=== PATIENT | female | born 1980 | race American Indian/Alaskan Native ===

== ENCOUNTER 2016-12-04 19:50 | Emergency (ER) | payer OTHER | END 2016-12-04 21:00 | disposition left against medical advice (07) | LOC: ED 19:50 | DX: G43.909 Migraine, unspecified, not intractable, without status migrainosus (principal); R03.0 Elevated blood-pressure reading, without diagnosis of hypertension; Z88.8 Allergy status to other drugs, medicaments and biological substances; Z53.21 Procedure and treatment not carried out due to patient leaving prior to being seen by health care provider ==

== ENCOUNTER 2017-03-07 21:31 | Inpatient (IN) | payer OTHER ==
[2017-03-07 23:03] LABS: Hematocrit 40.3 % (30.3-42.9); Hemoglobin 13.1 gm/dl (10.1-14.3); Mean Corpuscular HGB Conc 33 % (30-34); Mean Corpuscular Hemoglobin 33 pg (28-32); Mean Corpuscular Volume 103 fl (79-97); Platelet Count 146 K/mm3 (140-440); Red Blood Count 3.93 M/mm3 (3.65-5.03); Red Cell Distribution Width 13.2 % (13.2-15.2); White Blood Count 4.7 K/mm3 (4.5-11.0)
[2017-03-07 23:05] LABS: INR 1.13 (0.87-1.13); Partial Thromboplastin Time 35.5 Sec. (24.2-36.6)
[2017-03-07 23:19] LABS: Anion Gap 18 mmol/L; Blood Urea Nitrogen 12 mg/dL (7-17); Carbon Dioxide 23 mmol/L (22-30); Chloride 101.9 mmol/L (98-107); Creatine Kinase 139 units/L (30-135); Glucose 96 mg/dL (65-100); Potassium 3.5 mmol/L (3.6-5.0); Sodium 139 mmol/L (137-145)
[2017-03-07 23:53] LABS: Basophils % (Manual) 0 % (0.0-1.8); Blastocytes % (Manual) 0 %; Eosinophils % (Manual) 0 % (0.0-4.3)
[2017-03-07 23:59] LABS: RBC Morphology Normal
[2017-03-08] LABS: Diff Status Complete; Platelet Estimate Consistent w Auto
[2017-03-08] MEDS ORDERED: TYLENOL ONE (01:03)
[2017-03-08] MEDS ORDERED: TYLENOL PO ONE (01:11)
[2017-03-08] MEDS ORDERED: CATAPRES ONE (02:05)
[2017-03-08] MEDS ORDERED: CATAPRES PO ONE (02:11)
--- NOTE | 2017-03-08 07:05 | Emergency Department Report ---
HPI - General Chief Complaint: Chest Pain Time Seen by Provider: 03/08/17 06:51 - HPI HPI: Room 3 The patient is a 36-year-old female presenting with a chief complaint of syncope. The patient states yesterday while at work she felt "faint" all day. The patient states when she went home she continued to feel this way. The patient states while she was in the closet last night at approximately 20:00 she began to feel dizzy and had a funny feeling in her head with a slight headache and then lost consciousness. The patient states when she came to she was lying down on the floor and began having headache blurred vision and substernal chest pain. She still complains of the headache and chest pain. Patient describes chest pain as sharp in nature and gives it a score of 6/10. The patient gives her headache score of 5/10. The patient states she recently drove to and from [facility] 3 days ago (approximately [address]). The patient states she's never had a stress test or cardiac catheterization Location: Head, chest Duration: [see above] Quality: Headache, sharp Severity: 5-6/10 Modifying factors: [see above] Context: [see above] Mode of transportation: Unknown ED Past Medical Hx - Past Medical History Previous Medical History?: Yes Hx Hypertension: Yes Hx Diabetes: Yes (Recent Dx) Additional medical history: Hypothyroidism - Surgical History Past Surgical History?: Yes Hx Breast Surgery: Yes (breast biopsy-benign) Additional Surgical History: Hyst 2012, , herniorrhaphy - Family History Family history: no significant - Social History Smoking Status: Never Smoker Substance Use Type: None - Medications Home Medications: Home Medications Medication Instructions Recorded Confirmed Last Taken Type guaiFENesin/CODEINE [Robitussin AC] 5 ml PO Q6HR #120 ml 08/31/15 Unknown Rx ED Review of Systems ROS: Stated complaint: CHEST PAIN, RODRÍGUEZ Other details as noted in HPI Comment: All other systems reviewed and negative Constitutional: denies: chills, fever Eyes: denies: eye pain, eye discharge, vision change ENT: denies: ear pain, throat pain Respiratory: denies: cough, shortness of breath, wheezing Cardiovascular: chest pain Endocrine: no symptoms reported Gastrointestinal: denies: abdominal pain, nausea, diarrhea Genitourinary: denies: urgency, dysuria, discharge Musculoskeletal: denies: back pain, joint swelling, arthralgia Skin: denies: rash, lesions Neurological: headache Psychiatric: denies: anxiety, depression Hematological/Lymphatic: denies: easy bleeding, easy bruising Physical Exam - Physical Exam Vital Signs: Vital Signs 03/07/17 03/08/17 03/08/17 21:51 01:14 02:12 Temperature 98.5 F Pulse Rate 64 73 100 H Respiratory 18 18 Rate Blood Pressure 180/120 187/125 Blood Pressure 158/106 [Right] O2 Sat by Pulse 100 100 Oximetry 03/08/17 03/08/17 03/08/17 04:29 04:30 04:40 Temperature Pulse Rate 68 64 59 L Respiratory 13 13 15 Rate Blood Pressure 129/84 129/84 Blood Pressure [Right] O2 Sat by Pulse 100 100 99 Oximetry Physical Exam: GENERAL: The patient is well-developed well-nourished female lying on stretcher not appearing to be in acute distress. [] HEENT: Normocephalic. Atraumatic. Extraocular motions are intact. Patient has moist mucous membranes. NECK: Supple. No meningitic signs are noted. Trachea midline CHEST/LUNGS: Clear to auscultation. There is no respiratory distress noted. HEART/CARDIOVASCULAR: Regular. There is no tachycardia. There is no gallop rub or murmur. ABDOMEN: Abdomen is soft, nontender. Patient has normal bowel sounds. There is no abdominal distention. SKIN: There is no rash. There is no edema. There is no diaphoresis. NEURO: The patient is awake, alert, and oriented. The patient is cooperative. The patient has no focal neurologic deficits. The patient has normal speech. Cranial nerves II through XII grossly intact, no drift, system specialist equal bilaterally MUSCULOSKELETAL:There is no evidence of acute injury. ED Course Vital Signs 03/07/17 03/08/17 03/08/17 21:51 01:14 02:12 Temperature 98.5 F Pulse Rate 64 73 100 H Respiratory 18 18 Rate Blood Pressure 180/120 187/125 Blood Pressure 158/106 [Right] O2 Sat by Pulse 100 100 Oximetry 03/08/17 03/08/17 03/08/17 04:29 04:30 04:40 Temperature Pulse Rate 68 64 59 L Respiratory 13 13 15 Rate Blood Pressure 129/84 129/84 Blood Pressure [Right] O2 Sat by Pulse 100 100 99 Oximetry ED Medical Decision Making - Lab Data Result diagrams: 03/07/17 22:08 03/07/17 22:08 Laboratory Tests 03/07/17 03/07/17 03/07/17 22:08 22:08 22:08 WBC 4.7 RBC 3.93 Hgb 13.1 Hct 40.3 MCV 103 H MCH 33 H MCHC 33 RDW 13.2 Plt Count 146 Add Manual Diff Complete Total Counted 100 Seg Neuts % (Manual) 72.0 H Band Neutrophils % 2.0 Lymphocytes % (Manual) 21.0 Reactive Lymphs % (Man) 0 Monocytes % (Manual) 5.0 Eosinophils % (Manual) 0 Basophils % (Manual) 0 Metamyelocytes % 0 Myelocytes % 0 Promyelocytes % 0 Blast Cells % 0 Nucleated RBC % Not Reportable Seg Neutrophils # Man 3.4 Band Neutrophils # 0.1 Lymphocytes # (Manual) 1.0 L Abs React Lymphs (Man) 0.0 Monocytes # (Manual) 0.2 Eosinophils # (Manual) 0.0 Basophils # (Manual) 0.0 Metamyelocytes # 0.0 Myelocytes # 0.0 Promyelocytes # 0.0 Blast Cells # 0.0 WBC Morphology Not Reportable Hypersegmented Neuts Not Reportable Hyposegmented Neuts Not Reportable Hypogranular Neuts Not Reportable Smudge Cells Not Reportable Toxic Granulation Not Reportable Toxic Vacuolation Not Reportable Dohle Bodies Not Reportable Pelger-Huet Anomaly Not Reportable Mario Rods Not Reportable Platelet Estimate Consistent w auto Clumped Platelets Not Reportable Plt Clumps, EDTA Not Reportable Large Platelets Not Reportable Giant Platelets Not Reportable Platelet Satelliting Not Reportable Plt Morphology Comment Not Reportable RBC Morphology Normal Dimorphic RBCs Not Reportable Polychromasia Not Reportable Hypochromasia Not Reportable Poikilocytosis Not Reportable Anisocytosis Not Reportable Microcytosis Not Reportable Macrocytosis Not Reportable Spherocytes Not Reportable Pappenheimer Bodies Not Reportable Sickle Cells Not Reportable Target Cells Not Reportable Tear Drop Cells Not Reportable Ovalocytes Not Reportable Helmet Cells Not Reportable Buck-[place] Bodies Not Reportable Stowell Rings Not Reportable Max Cells Not Reportable Bite Cells Not Reportable Crenated Cell Not Reportable Elliptocytes Not Reportable Acanthocytes (Spur) Not Reportable Rouleaux Not Reportable Hemoglobin C Crystals Not Reportable Schistocytes Not Reportable Malaria parasites Not Reportable Celestino Bodies Not Reportable Hem Pathologist Commnt No PT 14.4 INR 1.13 APTT 35.5 D-Dimer Sodium 139 Potassium 3.5 L Chloride 101.9 Carbon Dioxide 23 Anion Gap 18 BUN 12 Creatinine 0.6 L Estimated GFR > 60 BUN/Creatinine Ratio 20.00 Glucose 96 Calcium 9.0 Total Creatine Kinase 139 H CK-MB (CK-2) 1.0 CK-MB (CK-2) Rel Index 0.7 Troponin T < 0.010 TSH Free T4 03/08/17 03/08/17 03/08/17 01:14 03:58 06:00 WBC RBC Hgb Hct MCV MCH MCHC RDW Plt Count Add Manual Diff Total Counted Seg Neuts % (Manual) Band Neutrophils % Lymphocytes % (Manual) Reactive Lymphs % (Man) Monocytes % (Manual) Eosinophils % (Manual) Basophils % (Manual) Metamyelocytes % Myelocytes % Promyelocytes % Blast Cells % Nucleated RBC % Seg Neutrophils # Man Band Neutrophils # Lymphocytes # (Manual) Abs React Lymphs (Man) Monocytes # (Manual) Eosinophils # (Manual) Basophils # (Manual) Metamyelocytes # Myelocytes # Promyelocytes # Blast Cells # WBC Morphology Hypersegmented Neuts Hyposegmented Neuts Hypogranular Neuts Smudge Cells Toxic Granulation Toxic Vacuolation Dohle Bodies Pelger-Huet Anomaly Mario Rods Platelet Estimate Clumped Platelets Plt Clumps, EDTA Large Platelets Giant Platelets Platelet Satelliting Plt Morphology Comment RBC Morphology Dimorphic RBCs Polychromasia Hypochromasia Poikilocytosis Anisocytosis Microcytosis Macrocytosis Spherocytes Pappenheimer Bodies Sickle Cells Target Cells Tear Drop Cells Ovalocytes Helmet Cells Buck-[place]kw[place] Bodies Stowell Rings Max Cells Bite Cells Crenated Cell Elliptocytes Acanthocytes (Spur) Rouleaux Hemoglobin C Crystals Schistocytes Malaria parasites Celestino Bodies Hem Pathologist Commnt PT INR APTT D-Dimer 178.16 Sodium Potassium Chloride Carbon Dioxide Anion Gap BUN Creatinine Estimated GFR BUN/Creatinine Ratio Glucose Calcium Total Creatine Kinase CK-MB (CK-2) CK-MB (CK-2) Rel Index Troponin T < 0.010 < 0.010 TSH Free T4 03/08/17 07:34 WBC RBC Hgb Hct MCV MCH MCHC RDW Plt Count Add Manual Diff Total Counted Seg Neuts % (Manual) Band Neutrophils % Lymphocytes % (Manual) Reactive Lymphs % (Man) Monocytes % (Manual) Eosinophils % (Manual) Basophils % (Manual) Metamyelocytes % Myelocytes % Promyelocytes % Blast Cells % Nucleated RBC % Seg Neutrophils # Man Band Neutrophils # Lymphocytes # (Manual) Abs React Lymphs (Man) Monocytes # (Manual) Eosinophils # (Manual) Basophils # (Manual) Metamyelocytes # Myelocytes # Promyelocytes # Blast Cells # WBC Morphology Hypersegmented Neuts Hyposegmented Neuts Hypogranular Neuts Smudge Cells Toxic Granulation Toxic Vacuolation Dohle Bodies Pelger-Huet Anomaly Mario Rods Platelet Estimate Clumped Platelets Plt Clumps, EDTA Large Platelets Giant Platelets Platelet Satelliting Plt Morphology Comment RBC Morphology Dimorphic RBCs Polychromasia Hypochromasia Poikilocytosis Anisocytosis Microcytosis Macrocytosis Spherocytes Pappenheimer Bodies Sickle Cells Target Cells Tear Drop Cells Ovalocytes Helmet Cells Buck-[place] Bodies Stowell Rings Max Cells Bite Cells Crenated Cell Elliptocytes Acanthocytes (Spur) Rouleaux Hemoglobin C Crystals Schistocytes Malaria parasites Celestino Bodies Hem Pathologist Commnt PT INR APTT D-Dimer Sodium Potassium Chloride Carbon Dioxide Anion Gap BUN Creatinine Estimated GFR BUN/Creatinine Ratio Glucose Calcium Total Creatine Kinase CK-MB (CK-2) CK-MB (CK-2) Rel Index Troponin T TSH 3.150 Free T4 0.85 - EKG Data -: EKG Interpreted by Me EKG shows normal: sinus rhythm Rate: normal - EKG Data When compared to previous EKG there are: previous EKG unavailable Interpretation: normal EKG - Radiology Data Radiology results: report reviewed (CT head), image reviewed (chest x-ray, CT head) interpreted by me: Chest x-ray-no focal infiltrates, no pneumothorax CT head (read by radiologist)-no acute intracranial abnormality - Differential Diagnosis ACS, PE, pneumonia, pneumothorax, pericarditis, ICH Critical care attestation.: If time is entered above; I have spent that time in minutes in the direct care of this critically ill patient, excluding procedure time. ED Disposition Clinical Impression: Syncope, Chest pain Disposition: OP ADMITTED IP TO THIS HOSP Is pt being admited?: Yes Condition: Fair Instructions: Chest Pain (ED), Syncope (ED) Referrals: PRIMARY CARE,MD [Primary Care Provider] - 3-5 Days Time of Disposition: 08:59 (hospitalist paged)
[2017-03-08] MEDS ORDERED: NORCO 5/325 PO ONE (07:06)
--- NOTE | 2017-03-08 07:27 | Admit Criteria Form ---
Admission Criteria Documentation: SYNCOPE Clinical Indications for Admission to Inpatient Care ( Place 'X' for any and all applicable criteria): Admission is indicated for syncope and ANY ONE of the following (1)(2)(3)(4)(5) (6)(7) : [X ]I. Inpatient admission required rather than observation care (Also use Syncope: Observation Care Criteria as appropriate) because of ANY ONE of the following: [ ]a) Hemodynamic instability that is severe or persistent [ ]b) Cardiac arrhythmias of immediate concern identified or strongly suspected (eg, needs electrophysiologic study) [ ]c) Acute coronary syndrome identified (Also use Myocardial Infarction or Angina Criteria form ) [ ]d) Structural cardiac disorder (eg, aortic stenosis) suspected as cause that requires immediate correction [ ]e) Respiratory symptoms (eg, dyspnea, tachypnea) that are severe or persistent [ ]f) Neurologic signs or symptoms that are severe or persistent ( eg, stroke, seizures, altered mental status) [ ]g) Severe electrolyte abnormalities requiring inpatient care [ ]h) Supplemental oxygen or respiratory treatment for over 24 hrs that are performable only in acute inpatient setting [ ]i) IV fluid to replace significant ongoing (eg, for over 24 hrs ) losses (>3 L/m2 per day) [ ]j) Continuous intravenous infusion of anticoagulation, platelet inhibitor, vasoactive, or antiarrhythmic medication(15)(16) [ ]k) Pulmonary artery catheter monitoring [ ]l) Temporary pacemaker placement(17) [ ]m) Emergent cardioversion(18) [ X]n) Other conditions, treatment or monitoring requiring inpatient admission [ ]II. Suspicion of imminently dangerous cause (eg, rare causes like pericardial tamponade, pulmonary embolism) [ ]III. Syncope causing severe injury requiring hospitalization Extended stay beyond goal length of stay may be needed for(28) [ ]a) Dangerous arrhythmia(15)(23)(27)(29) [ ]b) Myocardial ischemia [ ]c) Seizure disorder [ ]d) Syncope-related injuries The original [employer] content created by [employer] has been revised. The portions of the content which have been revised are identified through the use of italic text or in bold, and [employer] has neither reviewed nor approved the modified material. All other unmodified content is copyright [employer]. Please see references footnoted in the original [facility] edition 2016 Admission Criteria Met: Yes
--- NOTE | 2017-03-08 07:46 | XRay Report ---
Chest 2 views: Compared to 08/30/15. History: Chest pain. Findings: Normal cardiomediastinal silhouette. Trachea is midline. No consolidation, pneumothorax or pleural effusion. Impression: No acute cardiopulmonary findings.
--- NOTE | 2017-03-08 08:57 | Cat Scan Report ---
CT scan of head without contrast: History: Syncope, headache. Findings: Ventricles are normal in size and midline in location. No evidence of acute ischemia, hemorrhage or mass. No extra-axial fluid collection. Normal brainstem and cerebellum. Normal sinuses and mastoid air cells. Impression: No acute intracranial abnormality.
--- NOTE | 2017-03-08 09:43 | History and Physical Report ---
History of Present Illness Date of examination: 03/08/17 Date of admission: 03/08/17 Chief complaint: syncope, CP History of present illness: 36-year-old female who presents through the emergency department with chief complaint of chest pain and syncope. Patient reports that yesterday while working she felt dizzy and faint most of the day. Patient stated that her symptoms continued when she went home and was walking through her closet when she developed a syncopal episode. Patient denies any trauma. Patient does report loss of consciousness. Patient states that she awakened with a headache and chest pain. Patient also reports intermittent shortness of breath associated with chest pain. Patient describes the chest pain as substernal sharp in nature and constant. Patient denies any PND or orthopnea. No lower external swelling. No nausea vomiting or diarrhea. No fever, chills, cough or cold-like symptoms. Patient denies any cardiac evaluation in the past. Past History Past Medical History: anemia, hypertension, hypothyroidism Past Surgical History: No surgical history, Other (Hyst 2012, , herniorrhaphy) Social history: no significant social history Family history: no significant family history Medications and Allergies Allergies Allergy/AdvReac Type Severity Reaction Status Date / Time tramadol Allergy Vomiting Verified 08/30/15 20:45 Home Medications Medication Instructions Recorded Confirmed Last Taken Type Levothyroxine [Synthroid] 50 mcg PO QAM 03/08/17 03/08/17 Unknown History Losartan [Cozaar] 25 mg PO QDAY 03/08/17 03/08/17 Unknown History Review of Systems All systems: negative Exam - Constitutional Vitals: Temp Pulse Resp BP Pulse Ox 98.5 F 87 18 122/97 97 03/07/17 21:51 03/08/17 07:21 03/08/17 07:21 03/08/17 07:21 03/08/17 07:21 General appearance: Present: no acute distress, well-nourished - EENT Eyes: Present: PERRL ENT: hearing intact, clear oral mucosa - Neck Neck: Present: supple, normal ROM - Respiratory Respiratory effort: normal Respiratory: bilateral: CTA - Cardiovascular Heart Sounds: Present: S1 & S2. Absent: rub, click - Extremities Extremities: pulses symmetrical, No edema Peripheral Pulses: within normal limits - Abdominal General gastrointestinal: Present: soft, non-tender, non-distended, normal bowel sounds Female genitourinary: Present: normal - Integumentary Integumentary: Present: clear, warm, dry - Musculoskeletal Musculoskeletal: gait normal, strength equal bilaterally - Psychiatric Psychiatric: appropriate mood/affect, intact judgment & insight - Neurologic Neurologic: CNII-XII intact, moves all extremities Results - Labs CBC & Chem 7: 03/07/17 22:08 03/07/17 22:08 Labs: Laboratory Last Values WBC 4.7 K/mm3 (4.5-11.0) 03/07/17 22:08 RBC 3.93 M/mm3 (3.65-5.03) 03/07/17 22:08 Hgb 13.1 gm/dl (10.1-14.3) 03/07/17 22:08 Hct 40.3 % (30.3-42.9) 03/07/17 22:08 MCV 103 fl (79-97) H 03/07/17 22:08 MCH 33 pg (28-32) H 03/07/17 22:08 MCHC 33 % (30-34) 03/07/17 22:08 RDW 13.2 % (13.2-15.2) 03/07/17 22:08 Plt Count 146 K/mm3 (140-440) 03/07/17 22:08 Add Manual Diff Complete 03/07/17 22:08 Total Counted 100 03/07/17 22:08 Seg Neuts % (Manual) 72.0 % (40.0-70.0) H 03/07/17 22:08 Band Neutrophils % 2.0 % 03/07/17 22:08 Lymphocytes % (Manual) 21.0 % (13.4-35.0) 03/07/17 22:08 Reactive Lymphs % (Man) 0 % 03/07/17 22:08 Monocytes % (Manual) 5.0 % (0.0-7.3) 03/07/17 22:08 Eosinophils % (Manual) 0 % (0.0-4.3) 03/07/17 22:08 Basophils % (Manual) 0 % (0.0-1.8) 03/07/17 22:08 Metamyelocytes % 0 % 03/07/17 22:08 Myelocytes % 0 % 03/07/17 22:08 Promyelocytes % 0 % 03/07/17 22:08 Blast Cells % 0 % 03/07/17 22:08 Nucleated RBC % Not Reportable 03/07/17 22:08 Seg Neutrophils # Man 3.4 K/mm3 (1.8-7.7) 03/07/17 22:08 Band Neutrophils # 0.1 K/mm3 03/07/17 22:08 Lymphocytes # (Manual) 1.0 K/mm3 (1.2-5.4) L 03/07/17 22:08 Abs React Lymphs (Man) 0.0 K/mm3 03/07/17 22:08 Monocytes # (Manual) 0.2 K/mm3 (0.0-0.8) 03/07/17 22:08 Eosinophils # (Manual) 0.0 K/mm3 (0.0-0.4) 03/07/17 22:08 Basophils # (Manual) 0.0 K/mm3 (0.0-0.1) 03/07/17 22:08 Metamyelocytes # 0.0 K/mm3 03/07/17 22:08 Myelocytes # 0.0 K/mm3 03/07/17 22:08 Promyelocytes # 0.0 K/mm3 03/07/17 22:08 Blast Cells # 0.0 K/mm3 03/07/17 22:08 WBC Morphology Not Reportable 03/07/17 22:08 Hypersegmented Neuts Not Reportable 03/07/17 22:08 Hyposegmented Neuts Not Reportable 03/07/17 22:08 Hypogranular Neuts Not Reportable 03/07/17 22:08 Smudge Cells Not Reportable 03/07/17 22:08 Toxic Granulation Not Reportable 03/07/17 22:08 Toxic Vacuolation Not Reportable 03/07/17 22:08 Dohle Bodies Not Reportable 03/07/17 22:08 Pelger-Huet Anomaly Not Reportable 03/07/17 22:08 Mario Rods Not Reportable 03/07/17 22:08 Platelet Estimate Consistent w auto 03/07/17 22:08 Clumped Platelets Not Reportable 03/07/17 22:08 Plt Clumps, EDTA Not Reportable 03/07/17 22:08 Large Platelets Not Reportable 03/07/17 22:08 Giant Platelets Not Reportable 03/07/17 22:08 Platelet Satelliting Not Reportable 03/07/17 22:08 Plt Morphology Comment Not Reportable 03/07/17 22:08 RBC Morphology Normal 03/07/17 22:08 Dimorphic RBCs Not Reportable 03/07/17 22:08 Polychromasia Not Reportable 03/07/17 22:08 Hypochromasia Not Reportable 03/07/17 22:08 Poikilocytosis Not Reportable 03/07/17 22:08 Anisocytosis Not Reportable 03/07/17 22:08 Microcytosis Not Reportable 03/07/17 22:08 Macrocytosis Not Reportable 03/07/17 22:08 Spherocytes Not Reportable 03/07/17 22:08 Pappenheimer Bodies Not Reportable 03/07/17 22:08 Sickle Cells Not Reportable 03/07/17 22:08 Target Cells Not Reportable 03/07/17 22:08 Tear Drop Cells Not Reportable 03/07/17 22:08 Ovalocytes Not Reportable 03/07/17 22:08 Helmet Cells Not Reportable 03/07/17 22:08 Buck-[place] Bodies Not Reportable 03/07/17 22:08 [place] Rings Not Reportable 03/07/17 22:08 Max Cells Not Reportable 03/07/17 22:08 Bite Cells Not Reportable 03/07/17 22:08 Crenated Cell Not Reportable 03/07/17 22:08 Elliptocytes Not Reportable 03/07/17 22:08 Acanthocytes (Spur) Not Reportable 03/07/17 22:08 Rouleaux Not Reportable 03/07/17 22:08 Hemoglobin C Crystals Not Reportable 03/07/17 22:08 Schistocytes Not Reportable 03/07/17 22:08 Malaria parasites Not Reportable 03/07/17 22:08 Celestino Bodies Not Reportable 03/07/17 22:08 Hem Pathologist Commnt No 03/07/17 22:08 PT 14.4 Sec. (12.2-14.9) 03/07/17 22:08 INR 1.13 (0.87-1.13) 03/07/17 22:08 APTT 35.5 Sec. (24.2-36.6) 03/07/17 22:08 D-Dimer 178.16 ng/mlDDU (0-234) 03/08/17 06:00 Sodium 139 mmol/L (137-145) 03/07/17 22:08 Potassium 3.5 mmol/L (3.6-5.0) L 03/07/17 22:08 Chloride 101.9 mmol/L (98-107) 03/07/17 22:08 Carbon Dioxide 23 mmol/L (22-30) 03/07/17 22:08 Anion Gap 18 mmol/L 03/07/17 22:08 BUN 12 mg/dL (7-17) 03/07/17 22:08 Creatinine 0.6 mg/dL (0.7-1.2) L 03/07/17 22:08 Estimated GFR > 60 ml/min 03/07/17 22:08 BUN/Creatinine Ratio 20.00 % 03/07/17 22:08 Glucose 96 mg/dL (65-100) 03/07/17 22:08 Calcium 9.0 mg/dL (8.4-10.2) 03/07/17 22:08 Total Creatine Kinase 139 units/L (30-135) H 03/07/17 22:08 CK-MB (CK-2) 1.0 ng/mL (0.0-4.0) 03/07/17 22:08 CK-MB (CK-2) Rel Index 0.7 (0-4) 03/07/17 22:08 Troponin T < 0.010 ng/mL (0.00-0.029) 03/08/17 03:58 TSH 3.150 mlU/mL (0.270-4.200) 03/08/17 07:34 Free T4 0.85 ng/dL (0.76-1.46) 03/08/17 07:34 Assessment and Plan Assessment and plan: 1. Chest pain. Patient will be placed on chest pain pathway. Follow serial EKGs and troponin levels. Stress thallium in a.m. 2. Syncope. Follow-up echocardiogram and carotid ultrasound. 3. Hypertension. Resume antihypertensive medications. 4. Hypothyroidism. Continue Synthroid. Check TSH. 5. DVT prophylaxis. Lovenox daily.
[2017-03-08] MEDS ORDERED: DULCOLAX PR PRN (10:00)
[2017-03-08] MEDS ORDERED: NACL 0.9% 1000 ML 1,000 ML IV SCH (10:00)
[2017-03-08] MEDS ORDERED: MILK OF MAGNESIA PO PRN (10:00)
[2017-03-08] MEDS ORDERED: ZOFRAN IV PRN ×2 (10:00→21:40)
[2017-03-08] MEDS ORDERED: TYLENOL PO PRN (10:00)
[2017-03-08] MEDS ORDERED: SODIUM CHLORIDE FLUSH SYRINGE 10 ML IV PRN (10:30)
[2017-03-08 10:47] LABS: Creatine Kinase 101 units/L (30-135)
[2017-03-08 10:57] LABS: Creatine Kinase MB < 1.0 ng/mL (0.0-4.0)
[2017-03-08] MEDS: LOVENOX SUB-Q SCH (11:25)
[2017-03-08 17:41] LABS: Creatine Kinase 104 units/L (30-135)
[2017-03-08 17:45] LABS: Creatine Kinase MB < 1.0 ng/mL (0.0-4.0)
[2017-03-08] MEDS ORDERED: PROTONIX IV ONE (20:24)
[2017-03-08] MEDS ORDERED: MORPHINE IV PRN (21:40)
[2017-03-08] MEDS: ASPIRIN PO SCH (22:03)
[2017-03-08] MEDS: NITRO-BID 2% TP SCH (22:03)
[2017-03-09 05:43] LABS: Eosinophils % (Auto) 2.7 % (0.0-4.3); Hematocrit 37.5 % (30.3-42.9); Hemoglobin 12.9 gm/dl (10.1-14.3); Mean Corpuscular HGB Conc 34 % (30-34); Mean Corpuscular Hemoglobin 33 pg (28-32); Mean Corpuscular Volume 97 fl (79-97); Platelet Count 194 K/mm3 (140-440); Red Blood Count 3.86 M/mm3 (3.65-5.03); Red Cell Distribution Width 12.5 % (13.2-15.2); White Blood Count 3.2 K/mm3 (4.5-11.0)
[2017-03-09 06:11] LABS: Anion Gap 17 mmol/L; BUN/Creatinine Ratio 27.14; Blood Urea Nitrogen 19 mg/dL (7-17); Calcium 8.6 mg/dL (8.4-10.2); Carbon Dioxide 23 mmol/L (22-30); Chloride 104.9 mmol/L (98-107); Glucose 91 mg/dL (65-100); Sodium 141 mmol/L (137-145)
[2017-03-09] MEDS: NITRO-BID 2% TP SCH ×4 (06:44→18:53)
[2017-03-09] MEDS ORDERED: LEXISCAN IV ONE (09:18)
[2017-03-09] MEDS: ASPIRIN PO SCH (11:34)
[2017-03-09] MEDS: LOVENOX SUB-Q SCH (11:34)
--- NOTE | 2017-03-09 17:35 | Discharge Summary ---
Providers - Providers Date of Admission: 03/08/17 09:24 Date of discharge: 03/09/17 Attending physician: MARITA MALAVE 03/08/17 Consult to Cardiac Rehabilitation [CONS] Routine Reason For Exam: Phase I Primary care physician: [facility] Hospitalization Condition: Fair Pertinent studies: Lexiscan negative and ECHO normal Cardiac enzymes negative Procedures: Lexiscan -NL Hospital course: Patient admitted for CP and syncope.All tests were negative. Disposition: DISCHARGED TO HOME OR SELFCARE Time spent for discharge: 30 minutes - Discharge Diagnoses (1) HTN (hypertension) Status: Chronic Qualifiers: Hypertension type: essential hypertension Qualified Code(s): I10 - Essential (primary) hypertension Comment: Cont antihypertensives (2) Hypothyroidism Status: Chronic Qualifiers: Hypothyroidism type: acquired Qualified Code(s): E03.9 - Hypothyroidism, unspecified Comment: cont levothyroxine Core Measure Documentation - Palliative Care Palliative Care/ Comfort Measures: Not Applicable - Core Measures Any of the following diagnoses?: none Exam - Constitutional Vitals: Temp Pulse Resp BP Pulse Ox 97.9 F 82 18 134/81 99 03/09/17 07:25 03/09/17 10:00 03/09/17 07:25 03/09/17 09:35 03/09/17 07:25 General appearance: Present: no acute distress, well-nourished - EENT Eyes: Present: PERRL ENT: hearing intact, clear oral mucosa - Neck Neck: Present: supple, normal ROM - Respiratory Respiratory effort: normal Respiratory: bilateral: CTA - Cardiovascular Heart Sounds: Present: S1 & S2. Absent: rub, click - Extremities Extremities: pulses symmetrical, No edema Peripheral Pulses: within normal limits - Abdominal General gastrointestinal: Present: soft, non-tender, non-distended, normal bowel sounds Female genitourinary: Present: normal - Integumentary Integumentary: Present: clear, warm, dry - Musculoskeletal Musculoskeletal: gait normal, strength equal bilaterally - Psychiatric Psychiatric: appropriate mood/affect, intact judgment & insight - Neurologic Neurologic: CNII-XII intact, moves all extremities Plan Activity: no restrictions Diet: low cholesterol, low salt Follow up with: PRIMARY CARE, [Primary Care Provider] - 3-5 Days
[2017-03-09 19:33] VITALS: BP 119/67
--- NOTE | 2017-03-10 01:57 | Physician Progress Note ---
NUCLEAR STRESS TEST SUBJECTIVE: The patient is brought to the Cardiology lab. A nuclear stress test was performed. The patient tolerated the procedure well. Post-stress images reveal homogeneous distribution of the isotope with no significant reversibility to indicate ischemia. Accompanying gated study shows good systolic function with no wall motion abnormalities. Calculated ejection fraction is 59%. IMPRESSION: 1. Dual isotope study is negative for reversible defects to indicate ischemia. 2. Good systolic function with no wall motion abnormalities. Ejection fraction is calculated to be 59%. 3. Suggest clinical correlation. JOB# [id number] SPA/NTS
== END 2017-03-09 21:02 | disposition home or self-care (01) | DRG 312 ==
LOC: ED 21:31 → 4A 03-08 09:24
PROVIDERS: ADMIT Hospitalist; ATTEND Internal Medicine
DX: R55 Syncope and collapse (principal); R07.9 Chest pain, unspecified; I10 Essential (primary) hypertension; E03.9 Hypothyroidism, unspecified; D64.9 Anemia, unspecified; E11.9 Type 2 diabetes mellitus without complications; Z88.8 Allergy status to other drugs, medicaments and biological substances
CPT/HCPCS: 36415; 70450; 71020; 78452; 80048; 82550; 82553; 84439; 84443; 84484; 85007; 85025; 85379; 85610; 85730; 93005; 93010; 93017; 93306; 96372; A9502; C9113; J1650; J2270; J2785; J7030

== ENCOUNTER 2018-02-26 13:39 | Emergency (ER) | payer OTHER ==
[2018-02-26] MEDS ORDERED: CATAPRES PO ONE (17:23)
[2018-02-26] MEDS ORDERED: ASPIRIN PO ONE (17:23)
[2018-02-26] MEDS ORDERED: TYLENOL ONE (17:23)
[2018-02-26] MEDS ORDERED: CATAPRES ONE (17:23)
--- NOTE | 2018-02-26 17:25 | Emergency Department Report ---
Blank Doc - Documentation Documentation: Patient is a 37-year-old female past history of hypertension who is presenting with chest discomfort. Patient states this is a heavy sensation of shortness of breath and constant since last night. Patient states her blood pressure and elevated for approximately 1 month. Patient states her blood pressure is elevated to the 180s systolic despite taking her Norvasc. Patient states she hasn't missed any doses. Patient states her chest discomfort is not exertional. Patient will have chest x-ray troponin and basic lab work ordered. Patient given Catapres for blood pressure. A
--- NOTE | 2018-02-26 17:59 | XRay Report ---
FINAL REPORT EXAM: XR CHEST ROUTINE 2V HISTORY: Chest Pain TECHNIQUE: Frontal and lateral chest radiographs. PRIORS: None. FINDINGS: The cardiomediastinal silhouette is normal. No focal consolidation. No pleural effusion. No pneumothorax. No acute osseous abnormality. IMPRESSION: No acute cardiopulmonary process.
[2018-02-26 18:12] LABS: BUN/Creatinine Ratio 13; Blood Urea Nitrogen 9 mg/dL (7-17); Calcium 8.9 mg/dL (8.4-10.2); Hemolysis Index 5
[2018-02-26 18:42] VITALS: BP 139/91
--- NOTE | 2018-02-26 19:08 | Emergency Department Report ---
ED Chest Pain HPI - General Chief Complaint: Chest Pain Stated Complaint: CP SOB Time Seen by Provider: 02/26/18 17:15 Source: patient Mode of arrival: Ambulatory Limitations: No Limitations - History of Present Illness Initial Comments: Patient is aPatient is a 37-year-old female past history of hypertension who is presenting with chest discomfort. Patient states this is a heavy sensation of shortness of breath and constant since last night. Patient states her blood pressure and elevated for approximately 1 month. Patient states her blood pressure is elevated to the 180s systolic despite taking her Norvasc. Patient states she hasn't missed any doses. Patient states her chest discomfort is not exertional. Severity: moderate Severity scale (0 -10): 5 Quality: tightness Consistency: constant - Related Data Home Medications Medication Instructions Recorded Confirmed Last Taken Levothyroxine [Synthroid] 50 mcg PO QAM 03/08/17 03/08/17 Unknown Losartan [Cozaar] 25 mg PO QDAY 03/08/17 03/08/17 Unknown Previous Rx's Medication Instructions Recorded Last Taken Type Hydrochlorothiazide [HCTZ] 25 mg PO QDAY #30 tablet 02/26/18 Unknown Rx Allergies Allergy/AdvReac Type Severity Reaction Status Date / Time tramadol Allergy Vomiting Verified 08/30/15 20:45 Heart Score - HEART Score History: Slightly suspicious EKG: Normal Age: < 45 Risk factors: 1-2 risk factors Troponin: < normal limit HEART Score: 1 ED Review of Systems ROS: Stated complaint: CP SOB Other details as noted in HPI Comment: All other systems reviewed and negative ED Past Medical Hx - Past Medical History Hx Hypertension: Yes Hx Diabetes: Yes (boarderline) Hx GERD: Yes Additional medical history: Hypothyroidism,anemia - Surgical History Hx Breast Surgery: Yes (breast biopsy-benign) Additional Surgical History: Hyst 2012, , herniorrhaphy - Social History Smoking Status: Never Smoker Substance Use Type: None - Medications Home Medications: Home Medications Medication Instructions Recorded Confirmed Last Taken Type Levothyroxine [Synthroid] 50 mcg PO QAM 03/08/17 03/08/17 Unknown History Losartan [Cozaar] 25 mg PO QDAY 03/08/17 03/08/17 Unknown History Hydrochlorothiazide [HCTZ] 25 mg PO QDAY #30 tablet 02/26/18 Unknown Rx ED Physical Exam - General Limitations: No Limitations General appearance: alert, in no apparent distress - Head Head exam: Present: atraumatic, normocephalic - Eye Eye exam: Present: normal appearance - ENT ENT exam: Present: mucous membranes moist - Neck Neck exam: Present: normal inspection - Respiratory Respiratory exam: Present: normal lung sounds bilaterally. Absent: respiratory distress - Cardiovascular Cardiovascular Exam: Present: regular rate, normal rhythm. Absent: systolic murmur, diastolic murmur, rubs, gallop - GI/Abdominal GI/Abdominal exam: Present: soft, normal bowel sounds - Extremities Exam Extremities exam: Present: normal inspection - Back Exam Back exam: Present: normal inspection - Neurological Exam Neurological exam: Present: alert, oriented X3 - Psychiatric Psychiatric exam: Present: normal affect, normal mood - Skin Skin exam: Present: warm, dry, intact, normal color. Absent: rash ED Course Vital Signs 02/26/18 02/26/18 14:02 18:37 Temperature 98.5 F Pulse Rate 88 72 Respiratory 20 Rate Blood Pressure 165/96 139/91 O2 Sat by Pulse 99 99 Oximetry ED Medical Decision Making - Lab Data Result diagrams: 02/26/18 17:50 Lab Results 02/26/18 Range/Units 17:50 Sodium 136 L (137-145) mmol/L Potassium 3.6 (3.6-5.0) mmol/L Chloride 98.2 (98-107) mmol/L Carbon Dioxide 25 (22-30) mmol/L Anion Gap 16 mmol/L BUN 9 (7-17) mg/dL Creatinine 0.7 (0.7-1.2) mg/dL Estimated GFR > 60 ml/min BUN/Creatinine Ratio 13 % Glucose 113 H (65-100) mg/dL Calcium 8.9 (8.4-10.2) mg/dL Troponin T < 0.010 (0.00-0.029) ng/mL - EKG Data -: EKG Interpreted by Me EKG shows normal: sinus rhythm, axis, intervals, QRS complexes, ST-T waves Rate: normal - EKG Data Interpretation: normal EKG - Radiology Data Radiology results: report reviewed no acute process - Medical Decision Making Patient blood pressure is improved patient is maxed out on Norvasc already. Neurological thiazide as well. Patient will be discharged with a cardiology follow-up. Critical care attestation.: If time is entered above; I have spent that time in minutes in the direct care of this critically ill patient, excluding procedure time. ED Disposition Clinical Impression: Chest pain Qualifiers: Chest pain type: unspecified Qualified Code(s): R07.9 - Chest pain, unspecified HTN (hypertension) Qualifiers: Hypertension type: unspecified Qualified Code(s): I10 - Essential (primary) hypertension Disposition: TO HOME OR SELFCARE Is pt being admited?: No Does the pt Need Aspirin: No Condition: Stable Instructions: Chest Pain (ED), Hypertension (ED) Prescriptions: Hydrochlorothiazide [HCTZ] 25 mg PO QDAY #30 tablet Referrals: PRIMARY CARE, [Primary Care Provider] - 3-5 Days
== END 2018-02-26 19:17 | disposition home or self-care (01) ==
LOC: ED 13:39
DX: R07.89 Other chest pain (principal); I10 Essential (primary) hypertension; K21.9 Gastro-esophageal reflux disease without esophagitis
CPT/HCPCS: 36415; 71046; 80048; 84484; 93005; 93010

== ENCOUNTER 2018-03-29 19:50 | Emergency (ER) | payer OTHER ==
[2018-03-29 20:30] VITALS: BP 133/81
[2018-03-29 20:51] LABS: Basophils % (Auto) 0.8 % (0.0-1.8); Eosinophils # (Auto) 0.1 K/mm3 (0.0-0.4); Eosinophils % (Auto) 1.4 % (0.0-4.3); Hematocrit 40.5 % (30.3-42.9); Hemoglobin 13.9 gm/dl (10.1-14.3); Lymphocytes % (Auto) 40.3 % (13.4-35.0); Mean Corpuscular HGB Conc 34 % (30-34); Mean Corpuscular Hemoglobin 33 pg (28-32); Mean Corpuscular Volume 97 fl (79-97); Monocytes # (Auto) 0.4 K/mm3 (0.0-0.8); Monocytes % (Auto) 8.7 % (0.0-7.3); Platelet Count 221 K/mm3 (140-440); Red Cell Distribution Width 12.4 % (13.2-15.2)
[2018-03-29 21:05] LABS: Alanine Aminotransferase 11 units/L (7-56); BUN/Creatinine Ratio 27; Blood Urea Nitrogen 16 mg/dL (7-17); Calcium 8.8 mg/dL (8.4-10.2)
[2018-03-29 21:06] LABS: Albumin 4.5 g/dL (3.9-5); Hemolysis Index 12
[2018-03-29 22:18] LABS: Bilirubin,Urine NEG (Negative); Blood,Urine NEG (Negative); Color,Urine Yellow (Yellow); Protein,Urine <15 mg/dL mg/dL (Negative); Urobilinogen,Urine < 2.0 mg/dL (<2.0); WBC,Urine < 1.0 /HPF (0.0-6.0)
[2018-03-29] MEDS ORDERED: TYLENOL ONE (23:12)
[2018-03-29] MEDS ORDERED: TYLENOL PO ONE (23:17)
== END 2018-03-29 20:35 | disposition left against medical advice (07) ==
LOC: ED 19:50
DX: R10.9 Unspecified abdominal pain (principal); Z53.21 Procedure and treatment not carried out due to patient leaving prior to being seen by health care provider
CPT/HCPCS: 36415; 80053; 81001; 85025